=== PATIENT | male | born 1990 ===

== ENCOUNTER 2017-10-27 21:17 | Emergency (ER) | payer SELFPAY ==
[2017-10-27 21:44] VITALS: BP 112/78; PULSE 70; RESP 20; TEMP 98; O2SAT 97
--- NOTE | 2017-10-27 22:30 | ED PDOC ---
HPI: Psych/Substance Abuse Time Seen by Provider: 10/27/17 21:44 Chief Complaint (Nursing): Medical Clearance Chief Complaint (Provider): Medical/Psych Clearance History Per: Patient, Other (PD at bedside) History/Exam Limitations: no limitations Onset/Duration Of Symptoms: Mins Current Symptoms Are (Timing): Better Additional Complaint(s): Patient is a 26 year old male who presents in PD custody for psychiatric and medical clearance for incarceration. Patient was arrested due to possession of marijuana and possibly crack. Patient reports initially when he was arrested and brought to [facility], he felt very nervous and experienced palpitations and shortness of breath but these symptoms have since resolved upon arrival to ED. Patient states he also had a brief episode of chest tightness, but denies this sensation at present. Patient has no complaints at present. No reports of trauma. PMD: None Past Medical History Reviewed: Historical Data, Nursing Documentation, Vital Signs Vital Signs: Last Vital Signs Temp 98 F 10/27/17 21:42 Pulse 70 10/27/17 21:42 Resp 20 10/27/17 21:42 BP 112/78 10/27/17 21:42 Pulse Ox 97 10/27/17 21:42 - Medical History PMH: No Chronic Diseases - Surgical History Other surgeries: foot surgery (tendon repair) - Family History Family History: States: Unknown Family Hx - Social History Current smoker - smoking cessation education provided: Yes (1ppd) Alcohol: None Drugs: Cannabis - Allergies Allergies/Adverse Reactions: Allergies Allergy/AdvReac Type Severity Reaction Status Date / Time No Known Allergies Allergy Verified 10/27/17 21:42 Review of Systems ROS Statement: Except As Marked, All Systems Reviewed And Found Negative Cardiovascular: Positive for: Chest Pain (now resolved) Respiratory: Positive for: Shortness of Breath (now resolved) Physical Exam - Reviewed Nursing Documentation Reviewed: Yes Vital Signs Reviewed: Yes - Physical Exam Appears: Positive for: Well, Non-toxic, No Acute Distress Head Exam: Positive for: NORMOCEPHALIC Skin: Positive for: Normal Color, Warm, Dry Eye Exam: Positive for: EOMI, PERRL ENT: Positive for: Pharynx Is (clear, uvula midline), Other (Airway patent, (-) stridor.) Neck: Positive for: Painless ROM, Supple Cardiovascular/Chest: Positive for: Regular Rate, Rhythm Respiratory: Positive for: Normal Breath Sounds (speaking in full sentences, respirations even and nonlabored. ). Negative for: Decreased Breath Sounds, Accessory Muscle Use, Respiratory Distress Gastrointestinal/Abdominal: Positive for: Bowel Sounds (active x4), Soft. Negative for: Tenderness, Distended, Guarding Extremity: Positive for: Normal ROM. Negative for: Deformity Neurologic/Psych: Positive for: Alert, Oriented (x3), Mood/Affect (calm, cooperative), Gait (steady in ED). Negative for: Aphasia, Facial Droop - ECG O2 Sat by Pulse Oximetry: 97 (RA) Pulse Ox Interpretation: Normal Medical Decision Making Medical Decision Makin Initial Impression: Medical and Psychiatric clearance for incarceration Plan: -EKG -Urine drug screen -Crisis evaluation -Re-evaluation -Accucheck Accucheck: 81 2220 EKG: SB @ 55bpm (-) ST elevation, QTc [id number] Utox reviewed, (+) cocaine and cannabinoids Pending crisis evaluation. 2345 Crisis at bedside. 0023 Per crisis evaluation, patient is cleared for incarceration with the diagnosis of substance abuse per Dr Nix. On re-evaluation, patient reports no present symptoms and is resting comfortably. Patient remains AAOx3, in no acute distress. Neck is supple, lungs CTA, cardiac RRR, abdomen is soft and non-tender, neuro exam shows no focal findings. VSS, stable for discharge. Diagnostic results d/w the patient in great detail. Dx of medical and psychiatric clearance for incarceration, drug abuse d/w the patient. Based on history, exam and diagnostic results plan will be for discharge into PD custody. Return to the emergency room at any time for any new or worsening symptoms. Patient states he fully agrees with and understands discharge instructions. States that he agrees with the plan and disposition. Verbalized and repeated discharge instructions and plan. I have given the patient opportunity to ask any additional questions. Disposition - Clinical Impression Clinical Impression: Drug abuse, Medical clearance for incarceration - Patient ED Disposition Is Patient to be Admitted: No Counseled Patient/Family Regarding: Studies Performed, Diagnosis, Need For Followup - Disposition Referrals: [facility] [Outside] Disposition: Routine/Home Disposition Time: 00:23 Condition: FAIR Additional Instructions: PATIENT IS MEDICALLY AND PSYCHIATRICALLY STABLE FOR INCARCERATION. RETURN TO ED WITH ANY NEW OR WORSENING SYMPTOMS. Instructions: Drug Abuse and Drug Addiction (DC), Drug Abuse Treatment Forms: [employer] (Azerbaijani) Print Language: JORDANIAN - POA Present On Arrival: None Results - Lab Results Lab Results: 10/27/17 22:51 Urine Opiates Screen Negative Urine Methadone Screen Negative Ur Barbiturates Screen Negative Ur Phencyclidine Scrn Negative Ur Amphetamines Screen Negative U Benzodiazepines Scrn Negative U Oth Cocaine Metabols Positive H U Cannabinoids Screen Positive H
[2017-10-27 23:16] LABS: BARBITURATES, UR NEGATIVE (NEGATIVE); BENZODIAZEPINES, UR NEGATIVE (NEGATIVE); OPIATES, UR NEGATIVE (NEGATIVE); PHENCYCLIDINE, UR NEGATIVE (NEGATIVE)
--- NOTE | 2017-10-30 10:20 | CARD ---
APPROVED REPORT EKG Measurement Heart [id number] <Conclusion> Sinus rhythm with short LA with premature supraventricular complexes Otherwise normal ECG
== END 2017-10-28 00:30 | disposition home or self-care (01) ==
LOC: H.ER 21:17
DX: F19.10 Other psychoactive substance abuse, uncomplicated; F17.210 Nicotine dependence, cigarettes, uncomplicated
CPT/HCPCS: 99282; G0480